=== PATIENT | female | born 1980 | race Asian ===

== ENCOUNTER 2016-10-29 | Emergency (ER) | payer OTHER | END 2016-10-29 13:47 | disposition home or self-care (01) ==

== ENCOUNTER 2018-04-03 09:48 | Emergency (ER) | payer OTHER ==
[2018-04-03 09:57] VITALS: BP 120/88
[2018-04-03] MEDS ORDERED: BENZOCAINE/MENTHOL LOZENGE MM STA (10:04)
--- NOTE | 2018-04-03 10:06 | ED Physician Documentation ---
History of Present Illness - Stated complaint Stated Complaint: THROAT PX - Chief complaint Chief Complaint: Heent - Additonal information Additional information: hx from pt healthy 38 f AD Snyder denies preg sore throat for a week hoarse voice X 3 days dry cough 2/2 throat irriation no fever no [facility] but could be seen for several days Review of Systems Constitutional: denies: Fever Ears: denies: Ear pain Throat: reports: Sore throat Respiratory: reports: Cough GI: denies: Vomiting : denies: Now EGA Skin: denies: Rash PD PAST MEDICAL HISTORY - Present Medications Home Medications: Ambulatory Orders Medication Instructions Recorded Confirmed Pnv95/Ferrous Fumarate/FA 1 tab PO DAILY 10/29/16 10/29/16 [ Tablet] - Allergies Allergies/Adverse Reactions: Allergies Allergy/AdvReac Type Severity Reaction Status Date / Time Penicillins Allergy Unknown Verified 10/29/16 13:01 - Social History Does the pt smoke?: No Does the pt have substance abuse?: No - Immunizations Immunizations are current?: Yes Immunizations: TDAP current <10years PD ED PE NORMAL - Vitals Vital signs reviewed: Yes - General General: Alert and oriented X 3 - HEENT HEENT: PERRL, Ears normal, Moist mucous membranes. No: Pharynx benign ( enlarged erythematous tonsils with crypts) - Neck Neck: Supple, no meningeal sign, Other (no pain with tracheal manipulation). No : No adenopathy (anterior no posterior) - Cardiac Cardiac: RRR - Respiratory Respiratory: No respiratory distress, Clear bilaterally - Abdomen Abdomen: Soft, Non tender, No organomegaly - Derm Derm: Normal color - Neuro Neuro: Alert and oriented X 3 Results - Vitals Vitals: Vital Signs - 24 hr 04/03/18 09:54 Temperature 36.2 C L Heart Rate 73 Respiratory 16 Rate Blood Pressure 120/88 H O2 Saturation 98 Oxygen O2 Source Room air - Labs Labs: Laboratory Tests 04/03/18 10:04 Group A Strep Rapid Negative PD MEDICAL DECISION MAKING - Sepsis Event Vital Signs: Vital Signs - 24 hr 04/03/18 09:54 Temperature 36.2 C L Heart Rate 73 Respiratory 16 Rate Blood Pressure 120/88 H O2 Saturation 98 Oxygen O2 Source Room air Departure - Departure Disposition: 01 Home, Self Care Clinical Impression: Pharyngitis Qualifiers: Pharyngitis/tonsillitis etiology: unspecified etiology Qualified Code(s): J02.9 - Acute pharyngitis, unspecified Condition: Good Instructions: ED Pharyngitis Viral Report Pending Comments: The rapid strep test was negative The rapid test is not 100% accurate so a throat culture will also be run - this will take up to 3 days - the ER staff will call you if the culture is positive and antibiotics are needed In the meantime it looks like this is likely a viral infection - so antibiotics are not needed unless the culture come back positive - recommend fluids tylenol motrin and throat lozenges Forms: Activity restrictions
== END 2018-04-03 10:50 | disposition home or self-care (01) ==
LOC: ED 09:48
DX: J02.9 Acute pharyngitis, unspecified (principal)
CPT/HCPCS: 87070; 87430; 99282; 99283; A9270